=== PATIENT | female | born 1960 | race Caucasian/White ===

== ENCOUNTER 2018-06-23 15:17 | Emergency (ER) | payer BC ==
[~2018-06-23] VITALS: Ht 162.6 cm; Wt 77.1 kg
[~2018-06-23 15:17] MED LIST: BUPR1FIL3 PO; SUMA100T4 PO
[2018-06-23] MEDS ORDERED: DIPHENHYDRAMINE 50 MG/ML, 1ML ONE (16:06)
[2018-06-23] MEDS ORDERED: METOCLOPRAMIDE 5 MG/ML, 2ML ONE (16:06)
[2018-06-23 16:16] LABS: MICROSCOPIC INDICATED
[2018-06-23 16:20] LABS: BASOPHILS # (AUTO) 0.06 x10^3/uL (0-0.1); BASOPHILS % (AUTO) 1 % (0-1); EOSINOPHILS % (AUTO) 1 % (1-7); LYMPHOCYTES # (AUTO) 1.84 x10^3/uL (1-3.4); LYMPHOCYTES % (AUTO) 25 % (22-44); MD NO; MEAN CORPUSCULAR VOLUME 84.8 fL (80-100); MEAN PLATELET VOLUME 7.4 fL (7.4-10.4); MONOCYTES # (AUTO) 0.57 x10^3/uL (0.2-0.8); MONOCYTES % (AUTO) 8 % (2-9); NEUTROPHILS # (AUTO) 4.88 x10^3/uL (1.8-6.8); NEUTROPHILS % (AUTO) 66 % (42-75); PLATELET COUNT 239 x10^3/uL (130-400); RED BLOOD COUNT 4.84 x10^6/uL (3.82-5.3); RED CELL DISTRIBUTION WIDTH 13.7 % (9.6-15.2)
[2018-06-23 16:24] LABS: CULTURE INDICATED? NO
[2018-06-23 16:27] LABS: ALANINE AMINOTRANSFERASE 24 U/L (12-78); ALBUMIN 3.6 g/dL (3.4-5.0); ANION GAP 4 mmol/L (5-15); CALCIUM 8.2 mg/dL (8.5-10.1); CHLORIDE 105 mmol/L (98-107); CREATININE 0.87 mg/dL (0.55-1.02)
[2018-06-23 16:29] LABS: ALKALINE PHOSPHATASE 70 U/L (45-117); BILIRUBIN,TOTAL 0.2 mg/dL (0.2-1.0); TOTAL PROTEIN 7.3 g/dL (6.4-8.2)
[2018-06-23] MEDS ORDERED: DIPHENHYDRAMINE 50 MG/ML, 1ML IVPush ONE (16:30)
[2018-06-23] MEDS ORDERED: METOCLOPRAMIDE 5 MG/ML, 2ML IVPush ONE (16:30)
[2018-06-23] MEDS ORDERED: SODIUM CHLORIDE 0.9% 1,000ML IVBOLUS ONE (16:30)
[2018-06-23 18:02] VITALS: BP 118/75
== END 2018-06-23 18:05 | disposition home or self-care (01) ==
LOC: ED 18:00
DX: R31.29 Other microscopic hematuria (principal); G43.019 Migraine without aura, intractable, without status migrainosus; G89.29 Other chronic pain
CPT/HCPCS: 36415; 70450; 74176; 80053; 81001; 85025; 96374; 96375; 99285; J1200; J2765; J7030

== ENCOUNTER 2019-02-26 14:46 | Emergency (ER) | payer BC ==
[~2019-02-26] VITALS: Ht 162.6 cm; Wt 82.1 kg
[2019-02-26 14:49] VITALS: BP 136/74
--- NOTE | 2019-02-26 14:54 | NUR ---
PT AMBULATORY TO [facility] FROM TRIAGE WITH STEADY GAIT. PA AT BEDSIDE FOR EVALUATION. NAD NOTED. RESP REGULAR AND UNLABORED. CMS INTACT. PULSE NORMAL AND STRONG. CALL LIGHT IN REACH. FALL PRECAUTIONS IN PLACE.
--- NOTE | 2019-02-26 14:57 | NUR ---
REPORT AND CARE TO JAGUAR ROSA AT THIS TIME.
[2019-02-26] MEDS ORDERED: KETOROLAC 30 MG/1 ML IM ONE (15:30)
[2019-02-26] MEDS ORDERED: DIAZEPAM 5 MG TABLET PO ONE (15:30)
[2019-02-26] MEDS ORDERED: KETOROLAC 30 MG/1 ML ONE (15:31)
[2019-02-26] MEDS ORDERED: DIAZEPAM 5 MG TABLET ONE (15:31)
== END 2019-02-26 15:55 | disposition home or self-care (01) ==
LOC: ED 15:41
DX: M25.512 Pain in left shoulder (principal)
CPT/HCPCS: 99283

== ENCOUNTER 2019-12-26 08:48 | Emergency (ER) | payer BC ==
[~2019-12-26] VITALS: Ht 162.6 cm; Wt 79.6 kg
--- NOTE | 2019-12-26 09:12 | NUR ---
PT TO THIS AM AND THEN SENT TO ED WITH CHEST TIGHTNESS AND COUGH X3D, PT SPO2 88-90% ON RA IN TRIAGE. EKG IN TRAIGE. PT PLACED ON MONITOR. AT BEDSIDE. CALL LIGHT WITHIN REACH.
[2019-12-26 10:21] LABS: BASOPHILS # (AUTO) 0.01 x10^3/uL (0-0.1); BASOPHILS % (AUTO) 0 % (0-1); EOSINOPHILS % (AUTO) 0 % (1-7); LYMPHOCYTES # (AUTO) 0.62 x10^3/uL (1-3.4); LYMPHOCYTES % (AUTO) 16 % (22-44); MD NO; MEAN CORPUSCULAR HEMOGLOBIN 28.3 pg (27.0-34.8); MEAN CORPUSCULAR HGB CONC 33.8 g/dL (32.4-35.8); MEAN CORPUSCULAR VOLUME 83.8 fL (80-100); MEAN PLATELET VOLUME 7.2 fL (7.4-10.4); MONOCYTES # (AUTO) 0.55 x10^3/uL (0.2-0.8); MONOCYTES % (AUTO) 14 % (2-9); NEUTROPHILS # (AUTO) 2.69 x10^3/uL (1.8-6.8); NEUTROPHILS % (AUTO) 69 % (42-75); PLATELET COUNT 193 x10^3/uL (130-400); RED BLOOD COUNT 5.01 x10^6/uL (3.82-5.3); RED CELL DISTRIBUTION WIDTH 14.1 % (9.6-15.2)
--- NOTE | 2019-12-26 10:27 | NUR ---
PT RESTING ON GURNEY, VSS, NAD NOTED AT THIS TIME. DX CHEST PENDING
[2019-12-26 10:33] LABS: ALBUMIN 3.4 g/dL (3.4-5.0); ANION GAP 6 mmol/L (5-15); CALCIUM 8.5 mg/dL (8.5-10.1); CHLORIDE 106 mmol/L (98-107); CREATININE 0.76 mg/dL (0.55-1.02)
[2019-12-26 10:36] LABS: TROPONIN I < 0.015 ng/mL (0.000-0.045)
--- NOTE | 2019-12-26 11:11 | NUR ---
PT CURRENTLY SATING 95% ON RA, PT STATES IMPROVEMENT OF SOB
--- NOTE | 2019-12-26 12:21 | NUR ---
PT WITH ELEVATED D DIMER, PIV INITIATED. PT TO GO TO CT
[2019-12-26 13:47] VITALS: BP 120/74
--- NOTE | 2019-12-26 13:47 | NUR ---
PT TO CT AT THIS TIME
[2019-12-26] MEDS ORDERED: OMNIPAQUE 350 MG/ML, 100ML BOTTLE ONE (13:57)
[2019-12-26] MEDS ORDERED: SODIUM CHLORIDE FLUSH 10ML SYR IVF ONE (14:00)
== END 2019-12-26 14:43 | disposition home or self-care (01) ==
LOC: ED 11:55
DX: J98.01 Acute bronchospasm (principal); B34.9 Viral infection, unspecified; G89.29 Other chronic pain; G43.909 Migraine, unspecified, not intractable, without status migrainosus; Z90.710 Acquired absence of both cervix and uterus; Z87.891 Personal history of nicotine dependence
CPT/HCPCS: 36415; 71046; 71275; 80048; 82040; 84484; 85025; 85379; 93005; 99284; Q9967